=== PATIENT | female | born 1995 | race Caucasian/White ===

== ENCOUNTER 2017-02-01 23:03 | Inpatient (IN) | payer OTHER ==
[~2017-02-01] VITALS: Ht 152.4 cm; Wt 49.8 kg
[2017-02-02] MEDS ORDERED: ZOLPIDEM TARTRATE 10 MG TABLET PO PRN (03:15)
[2017-02-02] MEDS ORDERED: QUEtiapine FUMARATE 100 MG TABLET PO PRN (03:15)
[2017-02-02] MEDS ORDERED: LORazepam 1 MG TABLET PO PRN (03:15)
[2017-02-02 04:34] VITALS: BP 108/63
[2017-02-02 08:17] VITALS: BP 108/68
[2017-02-02 08:42] LABS: BASOPHILS % (AUTO) 0.7 % (0.0-2.0); EOSINOPHILS % (AUTO) 2.1 % (1.0-6.0); HEMOGLOBIN 13.5 g/dL (12.0-16.0); LYMPHOCYTES # (AUTO) 2.5 K/uL (1.0-4.8); LYMPHOCYTES % (AUTO) 33.6 % (22.0-44.0); MEAN CORPUSCULAR HEMOGLOBIN 28.5 pg (26.0-34.0); MEAN CORPUSCULAR HGB CONC 33.9 G/dL (31.0-37.0); MEAN CORPUSCULAR VOLUME 84 fL (80-100); MONOCYTES # (AUTO) 0.5 K/uL (0.1-1.0); MONOCYTES % (AUTO) 6.2 % (2.0-9.0); NEUTROPHILS # (AUTO) 4.2 K/uL (1.8-7.7); NEUTROPHILS % (AUTO) 57.4 % (40.0-70.0); PLATELET COUNT (AUTO) 229 K/uL (150-450); RED BLOOD CELL COUNT(AUTO) 4.75 MIL/uL (4.00-5.20); RED CELL DISTRIBUTION WIDTH 13.6 % (11.5-14.5); WHITE BLOOD COUNT (AUTO) 7.3 K/uL (4.5-11.0)
[2017-02-02 09:09] LABS: ALANINE AMINOTRANSFERASE 16 U/L (12-78); ALBUMIN 4.3 g/dL (3.4-5.0); ANION GAP 11 mmol/L (8-16); ASPARTATE AMINOTRANSFERASE 15 U/L (15-37); BILIRUBIN,TOTAL 0.4 mg/dL (0.1-1.0); CARBON DIOXIDE 26 mmol/L (22-29); CHLORIDE 104 mmol/L (98-107); CHOL/HDL RATIO 3.4 (3.9-5.7); CREATININE 0.78 mg/dL (0.60-1.30); GLOMERULAR FILTR. RATE CALC > 60 mL/min (>60); POTASSIUM 4.1 mmol/L (3.5-5.1); SODIUM SERUM 141 mmol/L (136-145); THYROID STIMULATING HORMONE 2.17 uIU/mL (0.36-3.74); TOTAL PROTEIN, SERUM 7.2 g/dL (6.4-8.2); UREA NITROGEN, BLOOD 18 mg/dL (7-18)
[2017-02-02 09:16] LABS: HEMOGLOBIN A1C 4.9 % (4.5-6.2)
[2017-02-02 16:07] VITALS: BP 105/66
[2017-02-03 00:05] VITALS: BP 106/65
[2017-02-03 08:34] VITALS: BP 96/60
[2017-02-03] MEDS: SERTRALINE HCL 50 MG TABLET PO SCH (08:41)
[2017-02-03 16:04] VITALS: BP 106/66
[2017-02-04 01:35] VITALS: BP 103/63
[2017-02-04 08:21] VITALS: BP 87/59
[2017-02-04] MEDS: SERTRALINE HCL 50 MG TABLET PO SCH (08:30)
[2017-02-04] MEDS ORDERED: SERT50TA12 PO (09:01)
== END 2017-02-04 11:09 | disposition home or self-care (01) | DRG 885 ==
LOC: EDBD 23:03 → EDSTATUS 23:34 → B2X 02-02 03:15
PROVIDERS: ADMIT Psychiatry & Neurology Psychiatry; ATTEND Psychiatry & Neurology Psychiatry
DX: F33.2 Major depressive disorder, recurrent severe without psychotic features (principal); R45.851 Suicidal ideations; F34.1 Dysthymic disorder; Z88.0 Allergy status to penicillin
CPT/HCPCS: 83036; 84439; 84443; 99285